=== PATIENT | male | born 2005 | race Caucasian/White ===

== ENCOUNTER 2024-10-11 16:41 | Emergency (ER) | payer OTHER, SELFPAY ==
[2024-10-11] VITALS (9 sets, daily range): BP systolic 123–142; BP diastolic 60–93; PULSE 58–82; RESP 18; TEMP 37.1; O2SAT 96–99; BMI 27.8
--- NOTE | 2024-10-11 18:47 | ED.RECABL ---
HPI - Recheck/Abnormal Lab/Rx General Chief Complaint: Recheck/Abnormal Lab/Rx Stated Complaint: hypoxic incident, weakness Time Seen by Provider: 10/11/24 18:47 Source: patient Mode of arrival: Wheelchair History of Present Illness HPI narrative: 19-year-old male without any significant past medical history presenting from home for evaluation multiple complaints. He states that he was flying and about 20 minutes and he started feeling very ?hot states that he started feeling numbness tingling to his whole-body, he states that during this time there was some issues with the pressurization of the plane, he states that at that time he had a give himself some oxygen states that this did improve his symptoms, he denies any LOC, he states that now he is feeling headache heaviness in all of his hands and feet. Denies LOC denies any chest pain shortness of breath, he denies any other symptoms at this time. Related Data Allergies Allergy/AdvReac Type Severity Reaction Status Date / Time No Known Drug Allergies Allergy Verified 10/11/24 16:47 Review of Systems Review of Systems Narrative: General: Positive lightheadedness, diffuse weakness, diaphoresis Denies fever, chills, weight loss HEENT: Denies headache, eye drainage, eye irritation, head trauma, sore throat, voice change Cardiovascular: Denies any chest pain, palpitations, tachycardia Respiratory: Denies any shortness of breath, cough, wheeze, stridor GI/: Denies any abdominal pain, nausea, vomiting, diarrhea, bright red blood per rectum, melanotic stools, urinary frequency, urinary retention, dysuria, hematuria MSK: Denies any joint pain, muscle pains, swelling Skin: Denies any rashes, lesions, discoloration Neuro: Denies any headache, lightheadedness, dizziness, fainting, weakness Psych: Denies SI/HI Patient History Social History Smoking Status: Current every day smoker Smoking Status: Current every day smoker tobacco type: cigarettes Exam Narrative Exam Narrative: General: Cooperative, well-developed, not in acute distress HEENT: Normocephalic, atraumatic, PERRLA, normal sclera, eyelids normal Neck: Active full range of motion, atraumatic Chest: Normal to inspection, negative crepitus, no overlying erythema ecchymosis Respiratory: Normal respiratory effort, not in acute respiratory distress, clear to auscultation bilaterally negative cough, wheeze, tachypnea, rhonchi, rales Cardiology: Regular rate rhythm negative gallop, murmur, rubs GI/: No tenderness to palpation, soft, non rigid, normal to inspection, exam deferred MSK: Full active range of motion in all 4 extremities, atraumatic, no tenderness to palpation of any bony prominences Skin: No rashes or lesions noted Neuro: Alert awake oriented x3, moves all 4 extremities spontaneously, cranial nerves intact, able to answer all questions appropriately follows commands appropriately Psych: Cooperative, negative suicidal or homicidal ideations Initial Vital Signs Initial Vital Signs: Vital Signs Temperature 98.8 F 10/11/24 16:47 Pulse Rate 78 10/11/24 16:47 Respiratory Rate 18 10/11/24 16:47 Blood Pressure 142/64 H 10/11/24 16:47 Pulse Oximetry 99 10/11/24 16:47 Oxygen Delivery Method Room Air 10/11/24 16:47 Course Orders Ordered: ED Orders 10/11/24 19:01 EKG-12 Lead Stat 10/11/24 19:22 BMP [Basic Metabolic Panel] Stat CBC Auto Diff [Complete Blood Count AUTO DIFF] Stat Vital Signs Vital signs: Vital Signs - 8 hr 10/11/24 16:47 10/11/24 16:56 10/11/24 16:57 Temperature 98.8 F Pulse Rate 78 82 79 Respiratory Rate 18 Blood Pressure 142/64 H Pulse Oximetry 99 98 98 Oxygen Delivery Method Room Air 10/11/24 16:57 10/11/24 17:00 10/11/24 17:00 Temperature Pulse Rate 77 Respiratory Rate Blood Pressure 131/72 134/72 Pulse Oximetry 98 Oxygen Delivery Method Room Air 10/11/24 17:30 10/11/24 17:30 10/11/24 18:00 Temperature Pulse Rate 61 58 L Respiratory Rate Blood Pressure 123/60 Pulse Oximetry 99 97 Oxygen Delivery Method 10/11/24 18:01 10/11/24 18:01 10/11/24 18:30 Temperature Pulse Rate 65 Respiratory Rate Blood Pressure 142/65 H 133/93 H Pulse Oximetry 99 Oxygen Delivery Method 10/11/24 18:30 10/11/24 19:55 Temperature Pulse Rate 81 75 Respiratory Rate Blood Pressure 133/93 H Pulse Oximetry 96 97 Oxygen Delivery Method Room Air MDM - Recheck/Abnormal Lab/Rx Differential Diagnosis Differential diagnosis: Likely other (Electrolyte abnormality, arrhythmia, hypoxemia, hypercapnia) Lab Data 10/11/24 19:22 10/11/24 19:22 Labs: Lab Results 10/11/24 Range/Units 19:22 WBC 8.9 (4.5-11.0) X10^3/uL RBC 5.05 (4.5-5.9) X10^6/uL Hgb 15.2 (13.5-17.5) g/dL Hct 44.4 (41-53) % MCV 87.9 (80-100) fL MCH 30.1 (26-34) PG MCHC 34.3 (30-36) % RDW 12.7 (11.6-14.8) % Plt Count 261 (150-400) X10^3/uL Neut % (Auto) 56.6 (50-75) % Lymph % (Auto) 36.4 (25-40) % [place] % (Auto) 5.5 (3-14) % Eos % (Auto) 0.6 L (2-4) % Baso % (Auto) 0.9 (0-2) % Neut # (Auto) 5000 (1934-4498) /uL Lymph # (Auto) 3200 (8561-0330) /uL [place] # (Auto) 500 (0-900) /uL Eos # (Auto) 100 (0-450) /uL Baso # (Auto) 100 (0-100) /uL Sodium 139 (137-145) mmol/L Potassium 4.1 (3.4-5.1) mmol/L Chloride 101 (98-107) mmol/L Carbon Dioxide 26 (22-32) mmol/L BUN 14 (9-20) mg/dL Creatinine 0.87 (0.66-1.25) mg/dL Estimated GFR > 60 (>60) mL/min BUN/Creatinine Ratio 16.1 (6-22) Glucose 92 (70-99) mg/dL Calcium 9.8 (8.4-10.2) mg/dL ECG Data Interpretation: EKG interpreted ED physician sinus 73 beats per minute QTC 425 normal axis no STEMI MDM Narrative Medical decision making narrative: 19-year-old male without any significant past medical history presents for multiple complaints, he states that when he was flying, 20 minutes and there was an issue with deep pressurization, he states that he had a administer oxygen to himself, states this was for 45 minutes, he states that he did feel better and when they landed symptoms did quickly improve, however he states that he feels still somewhat weak, he states that during the time in the air he was feeling lightheaded dizzy no actual syncope, states he was feeling tingling sensation to his whole-body. At time of evaluation patient is not complaining of any symptoms just a dull headache, no focal deficits noted, patient's symptoms more likely due to issues with pressure changes, he is well-appearing nontoxic he has no focal deficits lab work unremarkable EKG nonischemic with no arrhythmia, he was instructed to follow up with his primary care doctor strict return precautions were given he verbalized understanding of this and agrees to being discharged home with outpatient follow up Discharge Plan Departure Patient Disposition: Home Clinical Impression: Normal exam Activity Restrictions/Additional Instructions: Please follow up with your primary care doctor Please read the discharge instructions sheet carefully and bring all papers to all doctor follow-up visits, as it may contain information that your doctor may want to see. Disease processes change and evolve, if your symptoms worsen or if you develop any new symptoms that are concerning to you please return for evaluation. Your evaluation today does not show any evidence of any life-threatening/serious illnesses requiring admission to the hospital or surgery. Please follow-up with your doctor for re-evaluation in approximately 1 day. Seek immediate medical attention for any worrisome symptoms. *If you do not have a primary care provider please contact the [facility] Resource line at [phone]. They will ask some questions about your medical history and help get you set up with a doctor in the community. Stand Alone Forms: Patient Portal/API/Survey
--- NOTE | 2024-10-11 19:01 | EKG_ITS ---
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
[2024-10-11 19:29] LABS: Add Manual Diff / Slide Review NO; Basophils Absolute Auto 100 /uL (0-100); Basophils Percent Auto 0.9 % (0-2); Eosinophils Absolute Auto 100 /uL (0-450); Eosinophils Percent Auto 0.6 % (2-4); Hematocrit 44.4 % (41-53); Hemoglobin 15.2 g/dL (13.5-17.5); Lymphocytes Absolute Auto 3200 /uL (1100-4500); Lymphocytes Percent Auto 36.4 % (25-40); Mean Corpuscular HGB Conc 34.3 % (30-36); Mean Corpuscular Hemoglobin 30.1 PG (26-34); Mean Corpuscular Volume 87.9 fL (80-100); Monocytes Absolute Auto 500 /uL (0-900); Monocytes Percent Auto 5.5 % (3-14); Neutrophils Absolute Auto 5000 /uL (1500-7000); Neutrophils Percent Auto 56.6 % (50-75); Platelet Count 261 X10^3/uL (150-400); Red Blood Cell Count 5.05 X10^6/uL (4.5-5.9); Red Cell Distribution Width 12.7 % (11.6-14.8); White Blood Cell Count 8.9 X10^3/uL (4.5-11.0)
[2024-10-11 19:44] LABS: BUN Creatinine Ratio 16.1 (6-22); Blood Urea Nitrogen 14 mg/dL (9-20); Calcium 9.8 mg/dL (8.4-10.2); Carbon Dioxide 26 mmol/L (22-32); Chloride 101 mmol/L (98-107); Estimated Glomerular Filt Rate > 60 mL/min (>60); Glucose 92 mg/dL (70-99); HEMOLYSIS < 15 (0-50); Potassium 4.1 mmol/L (3.4-5.1); Sodium 139 mmol/L (137-145)
== END 2024-10-11 20:00 | disposition home or self-care (01) ==
PROVIDERS: Emergency Provider Student in an Organized Health Care Education/Training Program
DX: R42 Dizziness and giddiness (principal); R53.1 Weakness
CPT/HCPCS: 36415; 80048; 85025; 93005; 99281; 99284